=== PATIENT | female | born 1930 | race Caucasian/White ===

== ENCOUNTER 2019-05-25 10:36 | Emergency (ER) | payer MEDICARE, BC ==
[2019-05-25] MEDS ORDERED: Sodium Chloride 0.9% 10 ML Syringe FLUSH PRN (10:49)
--- NOTE | 2019-05-25 11:07 | EDM.PDOC ---
ED HPI GENERAL MEDICAL PROBLEM - General Chief Complaint: Neurological Problem Stated Complaint: DISORIENTED, FEELING UNWELL Time Seen by Provider: 05/25/19 10:50 Source of Information: Reports: Patient, Family, Old Records, RN History Limitations: Reports: No Limitations - History of Present Illness INITIAL COMMENTS - FREE TEXT/NARRATIVE: 88 yo female here with her son for onset about 40 minutes prior to arrival of mild expressive and receptive aphasia. Has not had any weakness of her arms/ legs or facial droop. Is on BP meds, hasn't had them yet today. BP normally well controlled. Has no CACERES or other source of pain. No hx of TIA or CVA. Lives in same building as her son who is here with her now. Is better neurologically now according to the son than at home or in the car en route. 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: Other (see below) (none) - Related Data Allergies Allergy/AdvReac Type Severity Reaction Status Date / Time oxycodone Allergy Other Verified 05/25/19 10:52 scopolamine Allergy Other Verified 05/25/19 10:52 codeine AdvReac Mild Nausea Verified 05/25/19 10:52 Home Meds: Home Meds Calcium Carbonate [Calcium] 1 tab PO DAILY 06/25/13 [History] Potassium Chloride 10 meq PO DAILY 06/25/13 [History] RABEprazole Sodium [Aciphex] 20 mg PO DAILY 06/25/13 [History] Sertraline HCl 50 mg PO DAILY 06/25/13 [History] Metoprolol Succinate [Toprol XL] 100 mg PO BEDTIME 02/16/15 [History] amLODIPine Besylate [Amlodipine Besylate] 2.5 mg PO DAILY 02/16/15 [History] Losartan Potassium 100 mg PO DAILY 05/25/19 [History] Teriparatide [Forteo] 1 dose DAILY 05/25/19 [History] Past Medical History HEENT History: Reports: Cataract, Impaired Vision, Sinusitis Cardiovascular History: Reports: Heart Failure, Hypertension Gastrointestinal History: Reports: Chronic Diarrhea, Diverticulosis Genitourinary History: Reports: Urinary Incontinence 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: 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 Uterine Bleeding, Musculoskeletal History: Reports: Back Pain, Chronic, Fracture, Osteoarthritis, RA Neurological History: Reports: Seizure Psychiatric History: Reports: Anxiety, Depression Endocrine/Metabolic History: Reports: Osteopenia, Osteoporosis Hematologic History: Reports: Anemia, Blood Transfusion(s) Other Oncologic History: Basal, squamous cell skin cancer Dermatologic History: Reports: Other (See Below) Other Dermatologic History: Basal cell cancer on nose, squamous cell on shoulder - Infectious Disease History Infectious Disease History: Reports: Chicken Pox, Measles, Mumps, Pertussis ( Whooping Cough) - Past Surgical History HEENT Surgical History: Reports: Cataract Surgery, Naso-Sinus Surgery, Other ( See Below) Musculoskeletal Surgical History: Reports: Arthroscopic Knee Dermatological Surgical History: Reports: Skin Biopsy Social & Family History - Tobacco Use Smoking Status *Q: Never Smoker - Alcohol Use Days Per Week of Alcohol Use: 4 Number of Drinks Per Day: 1 Total Drinks Per Week: 4 - Recreational Drug Use Recreational Drug Use: No ED ROS GENERAL - Review of Systems Review Of Systems: ROS reveals no pertinent complaints other than HPI. Constitutional: Reports: No Symptoms HEENT: Reports: No Symptoms Respiratory: Reports: No Symptoms Cardiovascular: Reports: No Symptoms Endocrine: Reports: No Symptoms GI/Abdominal: Reports: No Symptoms : Reports: No Symptoms Neurological: Reports: Confusion (mild), Trouble Speaking (some difficulty with comprehension, not articulation). Denies: Dizziness, Headache ED EXAM, NEURO - Physical Exam Exam: See Below Exam Limited By: No Limitations General Appearance: Alert, WD/WN, No Apparent Distress Eye Exam: Bilateral Eye: EOMI, Normal Inspection, PERRL, Other (some R visual field deficit noted.) Ears: Normal External Exam, Normal Canal, Other (hearing aids present) Nose: Normal Inspection, No Blood Throat/Mouth: Normal Inspection, Normal Lips, Normal Oropharynx, Normal Voice, No Airway Compromise Head Exam: Atraumatic, Normocephalic Neck: Normal Inspection Respiratory/Chest: No Respiratory Distress, Lungs Clear, Normal Breath Sounds, No Accessory Muscle Use Cardiovascular: Regular Rate, Rhythm, No Edema GI/Abdominal: Normal Bowel Sounds, Soft, Non-Tender, No Distention Neurological: Alert, Normal Mood/Affect, Normal Dorsiflexion, CN II-XII Intact, Normal Plantar Flexion, No Motor/Sensory Deficits, Oriented x 3, Other (R visual field deficit, some issues with comprehension of complex concepts that per son would normally be not a problem for her. ) DTR: 2+: Bicep (R), Bicep (L), Tricep (R), Tricep (L), Patella (R), Patella (L) , Achilles (R), Achilles (L) Extremities: Normal Inspection, Normal Range of Motion, Non-Tender, No Pedal Edema Psychiatric: Normal Affect, Normal Mood Skin Exam: Warm, Dry, Intact, Normal Color, No Rash EKG INTERPRETATION EKG Date: 05/25/19 Time: 11:05 Rhythm: NSR Rate (Beats/Min): 57 [place]: Normal P-Wave: Present QRS: LBBB (L ant fascicular block) ST-T: Normal QT: Normal Comparison: No Change EKG Interpretation Comments: LVH present. Course - Vital Signs Last Recorded V/S: Last Vital Signs Temp 36.7 C 05/25/19 10:56 Pulse 55 L 05/25/19 11:32 Resp 10 L 05/25/19 11:32 BP 150/53 H 05/25/19 11:49 Pulse Ox 99 05/25/19 11:32 - Orders/Labs/Meds Orders: Active Orders 24 hr Category Date Time Status Cardiac Monitoring [RC] .As Directed Care 05/25/19 10:49 Active EKG Documentation Completion [RC] ASDIRECTED Care 05/25/19 10:59 Active Heparin Sodium/D5W [Heparin 25,000 Units in D5W 500 ML] Med 05/25/19 12:00 Active 25,000 units in 500 ml IV TITRATE Sodium Chloride 0.9% [Saline Flush] Med 05/25/19 10:49 Active 10 ml FLUSH ASDIRECTED PRN Saline Lock Insert [OM.PC] Routine Oth 05/25/19 10:49 Ordered EKG 12 Lead [EK] Routine Ther 05/25/19 10:59 Ordered Medication Orders Heparin Sodium/Dextrose (Heparin 25,000 Units In D5w 500 Ml) 25,000 units in 500 mls @ 16 mls/hr IV TITRATE AGUEDA Sodium Chloride (Saline Flush) 10 ml FLUSH ASDIRECTED PRN PRN Reason: Keep Vein Open Last Admin: 05/25/19 11:39 Dose: 10 ml Labs: Laboratory Tests 05/25/19 05/25/19 05/25/19 Range/Units 10:48 10:48 11:26 WBC 6.1 (4.5-11.0) K/uL RBC 4.75 (3.30-5.50) M/uL Hgb 12.7 (12.0-15.0) g/dL Hct 39.4 (36.0-48.0) % MCV 83 (80-98) fL MCH 27 (27-31) pg MCHC 32 (32-36) % Plt Count 254 (150-400) K/uL Sodium 142 (140-148) mmol/L Potassium 4.1 (3.6-5.2) mmol/L Chloride 106 (100-108) mmol/L Carbon Dioxide 28 (21-32) mmol/L Anion Gap 8.2 (5.0-14.0) mmol/L BUN 19 H (7-18) mg/dL Creatinine 0.8 (0.6-1.0) mg/dL Est Cr Clr Drug Dosing 43.74 mL/min Estimated GFR (MDRD) > 60 (>60) Glucose 154 H (74-106) mg/dL Calcium 8.8 (8.5-10.1) mg/dL Troponin I 0.271 H* (0.000-0.056) ng/mL Urine Color Yellow (YELLOW) Urine Appearance Slightly cloudy A (CLEAR) Urine pH 7.0 (5.0-8.0) Ur Specific [place] 1.020 (1.008-1.030) Urine Protein Negative (NEGATIVE) mg/dL Urine Glucose (UA) Negative (NEGATIVE) mg/dL Urine Ketones Negative (NEGATIVE) mg/dL Urine Occult Blood Negative (NEGATIVE) Urine Nitrite Negative (NEGATIVE) Urine Bilirubin Negative (NEGATIVE) Urine Urobilinogen 0.2 (0.2-1.0) EU/dL Ur Leukocyte Esterase Small H (NEGATIVE) Urine RBC Not seen (0-5) Urine WBC 5-10 H (0-5) Ur Epithelial Cells Rare Amorphous Sediment Few Urine Bacteria Moderate Urine Mucus Not seen Meds: Medications Generic Name Dose Route Start Last Admin Trade Name Freq PRN Reason Stop Dose Admin Heparin Sodium/Dextrose 25,000 units in 500 mls @ 16 mls/hr 05/25/19 12:00 Heparin 25,000 Units In D5w 500 Ml IV TITRATE AGUEDA 800 UNITS/HR Sodium Chloride 10 ml 05/25/19 10:49 05/25/19 11:39 Saline Flush FLUSH 10 ml ASDIRECTED PRN Administration Keep Vein Open Discontinued Medications Generic Name Dose Route Start Last Admin Trade Name Joanie PRN Reason Stop Dose Admin Amlodipine Besylate 2.5 mg 05/25/19 11:16 05/25/19 11:38 Norvasc PO 05/25/19 11:17 2.5 mg ONETIME ONE Administration Aspirin 324 mg 05/25/19 11:35 05/25/19 11:50 Aspirin PO 05/25/19 11:36 324 mg ONETIME ONE Administration Clopidogrel Bisulfate 300 mg 05/25/19 11:54 Plavix PO 05/25/19 11:55 ONETIME ONE Heparin Sodium (Porcine) 4,000 units 05/25/19 11:54 Heparin Sodium IVPUSH 05/25/19 11:55 ONETIME ONE Losartan Potassium 100 mg 05/25/19 11:15 Cozaar PO 05/25/19 11:16 ONETIME ONE Losartan Potassium 50 mg 05/25/19 11:45 05/25/19 11:49 Cozaar PO 05/25/19 11:46 50 mg ONETIME ONE Administration - Radiology Interpretation Free Text/Narrative:: Head CT-NEg CT Results Date: 05/25/19 CT Results Time: 11:50 Departure - Departure Time of Disposition: 12:35 Disposition: DC/Tfer to Acute Hospital 02 Condition: Serious Clinical Impression: Non-ST elevated myocardial infarction, TIA (transient ischemic attack) - Discharge Information *PRESCRIPTION DRUG MONITORING PROGRAM REVIEWED*: No *COPY OF PRESCRIPTION DRUG MONITORING REPORT IN PATIENT GRACE: No Referrals: PCP,None [Primary Care Provider] - Forms: ED Department Discharge - My Orders Last 24 Hours: My Active Orders 05/25/19 10:49 Cardiac Monitoring [RC] .As Directed Sodium Chloride 0.9% [Saline Flush] 10 ml FLUSH ASDIRECTED PRN Saline Lock Insert [OM.PC] Routine 05/25/19 10:59 EKG Documentation Completion [RC] ASDIRECTED EKG 12 Lead [EK] Routine 05/25/19 12:00 Heparin Sodium/D5W [Heparin 25,000 Units in D5W 500 ML] 25,000 units in 500 ml IV TITRATE - Assessment/Plan Last 24 Hours: My Active Orders 05/25/19 10:49 Cardiac Monitoring [RC] .As Directed Sodium Chloride 0.9% [Saline Flush] 10 ml FLUSH ASDIRECTED PRN Saline Lock Insert [OM.PC] Routine 05/25/19 10:59 EKG Documentation Completion [RC] ASDIRECTED EKG 12 Lead [EK] Routine 05/25/19 12:00 Heparin Sodium/D5W [Heparin 25,000 Units in D5W 500 ML] 25,000 units in 500 ml IV TITRATE
[2019-05-25] MEDS ORDERED: Losartan 50 MG Tab PO ONE ×2 (11:15→11:45)
[2019-05-25] MEDS ORDERED: amLODIPine 5 MG Tab PO ONE (11:16)
[2019-05-25] MEDS ORDERED: Aspirin 81 MG Tab.Chew PO ONE (11:35)
--- NOTE | 2019-05-25 11:46 | CRLCT ---
INDICATION: TIA VS CVA INDICATION: TIA versus ischemic infarct. TECHNIQUE: CT head without contrast. COMPARISON: None FINDINGS: CSF spaces: Age-related volume loss. Small vessel ischemic changes in the periventricular white matter. Brain parenchyma: The napier-white differentiation is normal. No sign of mass, hemorrhage, or midline shift. Skull base and calvarium: The visualized mastoid air cells are clear. The visualized orbits are grossly unremarkable. No skull fractures. Partially visualized opacification of the left maxillary antrum and image 1, series 3. IMPRESSION: 1. There is no acute intracranial hemorrhage, shift of midline structures, or mass effect. 2. Volume loss/small-vessel ischemic changes in the periventricular white matter. 3. No hyperdense MCA sign. Dictated by Liu Mtz MD @ 05/25/2019 11:45:39 AM Please note that all CT scans at this facility use dose modulation, iterative reconstruction, and/or weight-based dosing when appropriate to reduce radiation dose to as low as reasonably achievable. Dictated by: Liu Mtz MD @ 05/25/2019 11:45:44 (Electronically Signed)
[2019-05-25] MEDS ORDERED: Clopidogrel 75 MG Tab PO ONE (11:54)
[2019-05-25] MEDS ORDERED: Heparin Sodium 5,000 Units/ML Vial IVPUSH ONE (11:54)
[2019-05-25] MEDS ORDERED: Heparin Sodium/D5W 25,000 UNITS/500 ML BAG IV SCH (12:00)
[2019-05-25] MEDS ORDERED: LORazepam 2 MG/ML SDV IVPUSH ONE (13:12)
[2019-05-25 13:13] VITALS: BP 208/80; PULSE 65
== END 2019-05-25 13:58 ==
LOC: JP.ED 10:36
DX: I21.4 Non-ST elevation (NSTEMI) myocardial infarction (principal); G45.9 Transient cerebral ischemic attack, unspecified; I11.0 Hypertensive heart disease with heart failure; I50.9 Heart failure, unspecified; F41.9 Anxiety disorder, unspecified; F32.9 Major depressive disorder, single episode, unspecified; Z88.5 Allergy status to narcotic agent; Z88.8 Allergy status to other drugs, medicaments and biological substances; Z79.899 Other long term (current) drug therapy
CPT/HCPCS: 36415; 70450; 80048; 81001; 84484; 85027; 93005; 96365; 96375; 99285; A9270; J1644; J2060; 93010

== ENCOUNTER 2019-06-13 17:49 | Emergency (ER) | payer MEDICARE, BC ==
--- NOTE | 2019-06-13 18:13 | EDM.PDOC ---
ED HPI GENERAL MEDICAL PROBLEM - General Chief Complaint: Neurological Problem Stated Complaint: MED[facility] Time Seen by Provider: 06/13/19 18:00 Source of Information: Reports: EMS, Family, Old Records History Limitations: Reports: No Limitations - History of Present Illness INITIAL COMMENTS - FREE TEXT/NARRATIVE: 88 yo female here via EMS from her home after about a 4 min seizure witnessed by her son. He described her R hand as twitching rhythmically. Had one prior seizure about 8 yrs ago. 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 A work up there did not reveal the source of the embolus. The son states she appeared to fully recover from that stroke. Patricia lives above her son in the same building. The son heard her fall upstairs and they ran up to catch about 3 minutes of seizing. Transport via EMS to the hospital. She appeared postictal and was noted to be hypertensive during transport. Had a Holter upon discharge, the son reports he was told there was "an event" that was noted on this, but has not yet been notified by cardiology what that event was. Onset: Today Onset Date: 06/13/19 Duration: Minutes: (~4 min), Resolved Prior to Arrival Location: Reports: Upper Extremity, Right Quality: Reports: Other (pain not reported.) Severity: Moderate Improves with: Reports: Other (time) Worsens with: Reports: Other (unknown) Context: Reports: Other (See HPI) Associated Symptoms: Reports: Seizure. 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 (see below) (none) - Related Data Allergies Allergy/AdvReac Type Severity Reaction Status Date / Time oxycodone Allergy Other Verified 06/13/19 18:01 scopolamine Allergy Other Verified 06/13/19 18:01 codeine AdvReac Mild Nausea Verified 06/13/19 18:01 Home Meds: Home Meds Calcium Carbonate [Calcium] 1 tab PO DAILY 06/25/13 [History] Potassium Chloride 10 meq PO DAILY 06/25/13 [History] Sertraline HCl 50 mg PO DAILY 06/25/13 [History] Losartan Potassium 50 mg PO DAILY 05/25/19 [History] Teriparatide [Forteo] 1 dose SQ DAILY 05/25/19 [History] Aspirin 81 mg PO DAILY 06/13/19 [History] Carvedilol 12.5 mg PO BID 06/13/19 [History] Diphenoxylate HCl/Atropine [Lomotil] 1 tab PO Q6H PRN 06/13/19 [History] Loratadine 10 mg PO DAILY 06/13/19 [History] Omeprazole 20 mg PO DAILY 06/13/19 [History] atorvaSTATin [Lipitor] 80 mg PO BEDTIME 06/13/19 [History] hydroCHLOROthiazide [Hydrochlorothiazide] 25 mg PO DAILY 06/13/19 [History] levETIRAcetam [Keppra] 250 mg PO Q12H #106 tablet 06/13/19 [Rx] Past Medical History HEENT History: Reports: Cataract, Impaired Vision, Sinusitis Cardiovascular History: Reports: Heart Failure, Hypertension Gastrointestinal History: Reports: Chronic Diarrhea, Diverticulosis Genitourinary History: Reports: Urinary Incontinence 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: 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 Bleeding, Musculoskeletal History: Reports: Back Pain, Chronic, Fracture, Osteoarthritis, RA Neurological History: Reports: Seizure Psychiatric History: Reports: Anxiety, Depression Endocrine/Metabolic History: Reports: Osteopenia, Osteoporosis Hematologic History: Reports: Anemia, Blood Transfusion(s) Other Oncologic History: Basal, squamous cell skin cancer Dermatologic History: Reports: Other (See Below) Other Dermatologic History: Basal cell cancer on nose, squamous cell on shoulder - Infectious Disease History Infectious Disease History: Reports: Chicken Pox, Measles, Mumps, Pertussis ( Whooping Cough) - Past Surgical History HEENT Surgical History: Reports: Cataract Surgery, Naso-Sinus Surgery, Other ( See Below) Musculoskeletal Surgical History: Reports: Arthroscopic Knee Dermatological Surgical History: Reports: Skin Biopsy ED [facility] GENERAL - Review of Systems Review Of Systems: See Below Constitutional: Reports: No Symptoms HEENT: Reports: No Symptoms Respiratory: Reports: No Symptoms Cardiovascular: Reports: No Symptoms GI/Abdominal: Reports: No Symptoms : Reports: No Symptoms Musculoskeletal: Reports: No Symptoms Skin: Reports: No Symptoms Neurological: Reports: Confusion (immediatetely after the seizure), Seizure ( about 4 min duration) - Physical Exam Exam: See Below Exam Limited By: No Limitations General Appearance: WD/WN, No Apparent Distress, Lethargic (upon arrival in the ER). No: Alert Eye Exam: Bilateral Eye: Conjunctival Injection, EOMI, Normal Inspection, PERRL Ears: Normal External Exam, Normal Canal, Hearing Grossly Normal, Normal TMs Nose: Normal Inspection, No Blood Throat/Mouth: Normal Inspection, Normal Lips, Normal Oropharynx, No Airway Compromise, Evidence of Tongue Biting Head Exam: Atraumatic, Normocephalic Neck: Normal Inspection Respiratory/Chest: No Respiratory Distress, Lungs Clear, Normal Breath Sounds, No Accessory Muscle Use Cardiovascular: Regular Rate, Rhythm, No Edema GI/Abdominal: Normal Bowel Sounds, Soft, Non-Tender, No Distention Neuro Exam (Abbreviated): Alert, CN II-XII Intact, No Motor/Sensory Deficits, Confused (initially), Disoriented (initially), Slow to Respond, Memory Loss Recent Events. No: Sensory/Motor Deficit Back Exam: Normal Inspection Extremities: Normal Inspection, Normal Range of Motion, Non-Tender, No Pedal Edema Psychiatric: Normal Affect, Normal Mood Skin Exam: Warm, Dry, Intact, Normal Color, No Rash Course - Vital Signs Text/Narrative:: Case discussed with a [place] neurologist @ 1842h, recommends starting her on Keppra bid. Dosing guidelines discussed. Needs to f/u soon with solution advisor to discuss her heart monitor results. Called Dr. Muir @ 2002h, told him patient's son did not want to take her home and asked if he would put her in as an OBS patient. He told me to go ahead and repeat to family/patient what I had told them earlier and then go ahead and send them home. Was observed for a couple more hrs and showed no sign of further seizures or any bouts of afib. Will discharge. Last Recorded V/S: Last Vital Signs Temp 35.4 C 06/13/19 18:08 Pulse 57 L 06/13/19 21:51 Resp 24 H 06/13/19 21:51 BP 147/58 H 06/13/19 21:51 Pulse Ox 98 06/13/19 21:51 - Orders/Labs/Meds Orders: Active Orders 24 hr Category Date Time Status Sodium Chloride 0.9% [Saline Flush] Med 06/13/19 18:43 Active 10 ml FLUSH ASDIRECTED PRN Saline Lock Insert [OM.PC] Routine Oth 06/13/19 18:43 Ordered Medication Orders Sodium Chloride (Saline Flush) 10 ml FLUSH ASDIRECTED PRN PRN Reason: Keep Vein Open Last Admin: 06/13/19 19:16 Dose: 10 ml Meds: Medications Generic Name Dose Route Start Last Admin Trade Name Freq PRN Reason Stop Dose Admin Sodium Chloride 10 ml 06/13/19 18:43 06/13/19 19:16 Saline Flush FLUSH 10 ml ASDIRECTED PRN Administration Keep Vein Open Discontinued Medications Generic Name Dose Route Start Last Admin Trade Name Freq PRN Reason Stop Dose Admin Levetiracetam 1,000 mg/ Sodium 110 mls @ 400 mls/hr 06/13/19 18:43 06/13/19 19:10 Chloride IV 06/13/19 18:57 400 mls/hr ONETIME ONE Administration Levetiracetam 250 mg 06/13/19 18:45 Keppra PO BID AGUEDA - Radiology Interpretation Free Text/Narrative:: Head CT scan without contrast- IMPRESSION: 1. Question of subtle patchy hypodensity in the left parietal lobe, as noted. MRI should be considered for further evaluation. 2. Mild age-related brain atrophy, white matter hypodensity consistent with chronic small vessel ischemic change, and intracranial atherosclerotic vascular calcifications. RONALDO FLORES MD CT Results Date: 06/13/19 Departure - Departure Time of Disposition: 22:11 Disposition: Home, Self-Care 01 Condition: Fair Clinical Impression: Seizure - Discharge Information *PRESCRIPTION DRUG MONITORING PROGRAM REVIEWED*: No *COPY OF PRESCRIPTION DRUG MONITORING REPORT IN PATIENT GRACE: No Prescriptions: levETIRAcetam [Keppra] 250 mg PO Q12H #106 tablet Referrals: Hermila Romero MD [Primary Care Provider] - Forms: ED Department Discharge Additional Instructions: Take Keppra 250 mg every 12 hrs starting tomorrow morning when pharmacies open. After a week increase the dose to 500 mg every 12 hrs. Make an appt to follow up with both cardiology and neurology. Return as needed. Keep track of Patricia's BP and report her readings to her solution advisor/family doctors. Continue other meds. Try to reach cardiology tomorrow to see if afib was seen on heart monitoring and if a med other than Aspirin is needed for stroke prevention. No driving, climbing or other activities that would be particularly dangerous if another seizure occurred. Return as needed. - My Orders Last 24 Hours: My Active Orders 06/13/19 18:43 Sodium Chloride 0.9% [Saline Flush] 10 ml FLUSH ASDIRECTED PRN Saline Lock Insert [OM.PC] Routine - Assessment/Plan Last 24 Hours: My Active Orders 06/13/19 18:43 Sodium Chloride 0.9% [Saline Flush] 10 ml FLUSH ASDIRECTED PRN Saline Lock Insert [OM.PC] Routine
--- NOTE | 2019-06-13 18:28 | CRLCT ---
INDICATION: seizure activity CT HEAD WITHOUT CONTRAST TECHNIQUE: Multiple axial CT images were performed through the head without intravenous contrast administration. COMPARISON: 05/25/[address] FINDINGS: No acute intracranial hemorrhage is identified. No extra-axial collections are evident and there is no mass effect or midline shift. There is mild diffuse age-related brain atrophy, as before. Ventricular size and configuration are within normal limits for the patient`s age. Gonzalez-white differentiation is within normal limits. There is unchanged patchy hypodensity in the periventricular white matter, a nonspecific finding which most likely reflects chronic small vessel ischemic change. Intracranial atherosclerotic vascular calcifications are noted. There is a question of subtle patchy cortical and subcortical hypodensity in the left parietal lobe, which could possibly represent a subacute infarct or edema surrounding a small mass. Osseous structures are within normal limits and no fractures are seen. Included portions of the paranasal sinuses and mastoid air cells are normally aerated aside from mucosal thickening in the superior right maxillary sinus, as before. IMPRESSION: 1. Question of subtle patchy hypodensity in the left parietal lobe, as noted. MRI should be considered for further evaluation. 2. Mild age-related brain atrophy, white matter hypodensity consistent with chronic small vessel ischemic change, and intracranial atherosclerotic vascular calcifications. RONALDO FLORES MD [employer] Dictated by Joseluis Flores MD @ 06/13/2019 6:21:11 PM Dictated by: Joseluis Flores MD @ 06/13/2019 18:26:52 (Electronically Signed)
[2019-06-13] MEDS ORDERED: Sodium Chloride 0.9% 10 ML Syringe FLUSH PRN (18:43)
[2019-06-13] MEDS ORDERED: levETIRAcetam 1,000 MG in Sodium Chloride 0.9% 100 ML IV ONE (18:43)
[2019-06-13] MEDS ORDERED: levETIRAcetam 250 MG Tab PO SCH (18:45)
[2019-06-13 21:52] VITALS: BP 147/58; PULSE 57
== END 2019-06-13 22:22 | disposition home or self-care (01) ==
LOC: JP.ED 17:49
DX: R56.9 Unspecified convulsions (principal); I11.0 Hypertensive heart disease with heart failure; I50.9 Heart failure, unspecified; F32.9 Major depressive disorder, single episode, unspecified; F41.9 Anxiety disorder, unspecified; Z86.73 Personal history of transient ischemic attack (TIA), and cerebral infarction without residual deficits; Z79.82 Long term (current) use of aspirin; Z79.899 Other long term (current) drug therapy; Z88.5 Allergy status to narcotic agent; Z88.8 Allergy status to other drugs, medicaments and biological substances
CPT/HCPCS: 70450; 96374; 99284; J1953; J7030

== ENCOUNTER 2019-11-28 20:45 | Emergency (ER) | payer MEDICARE, BC ==
--- NOTE | 2019-11-28 21:35 | EDM.PDOC ---
ED HPI GENERAL MEDICAL PROBLEM - General Chief Complaint: Neuro Symptoms/Deficits Stated Complaint: NOT FEELING RIGHT Time Seen by Provider: 11/28/19 21:20 Source of Information: Reports: Patient, Family, RN Notes Reviewed History Limitations: Reports: No Limitations - History of Present Illness INITIAL COMMENTS - FREE TEXT/NARRATIVE: 88-year-old female presents emergency department today complaint of left arm tingling, the symptoms started about an hour prior they now have resolved she feels she is back to normal. She does have a history of recent pacemaker implantation and CVA which occurred about 6 months ago was placed on Eliquis for anticoagulation which she is taking she does use hydrochlorothiazide intermittently for leg edema, son states he is noticed she has had some difficulty speaking over the last 3 weeks denies pain Pain Score (Numeric/FACES): 0 - Related Data Allergies Allergy/AdvReac Type Severity Reaction Status Date / Time oxycodone Allergy Other Verified 11/28/19 21:04 scopolamine Allergy Other Verified 11/28/19 21:04 codeine AdvReac Mild Nausea Verified 11/28/19 21:04 Home Meds: Home Meds Potassium Chloride 10 meq PO DAILY 06/25/13 [History] Sertraline HCl 50 mg PO BEDTIME 06/25/13 [History] Losartan Potassium 50 mg PO BID 05/25/19 [History] hydroCHLOROthiazide [Hydrochlorothiazide] 12.5 mg PO ASDIRECTED PRN 06/13/19 [ History] Apixaban [Eliquis] 2.5 mg PO BID 11/28/19 [History] Calcium Carbonate/Vitamin D3 [Calcium 600 + Vit D Tablet] 2 tab PO DAILY [History] Cholecalciferol (Vitamin D3) [Vitamin D3] 125 mcg PO DAILY 11/28/19 [History] Teriparatide [Forteo] 1 injection SUBCUT BEDTIME 11/28/19 [History] amLODIPine [Norvasc] 5 mg PO DAILY 11/28/19 [History] Past Medical History HEENT History: Reports: Cataract, Impaired Vision, Sinusitis Cardiovascular History: Reports: Heart Failure, Hypertension Gastrointestinal History: Reports: Chronic Diarrhea, Diverticulosis Genitourinary History: Reports: Urinary Incontinence [employer] History: Reports: 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 Uterine Bleeding, Musculoskeletal History: Reports: Back Pain, Chronic, Fracture, Osteoarthritis, RA Neurological History: Reports: CVA (May 2019), Seizure Psychiatric History: Reports: Anxiety, Depression Endocrine/Metabolic History: Reports: Osteopenia, Osteoporosis Hematologic History: Reports: Anemia, Blood Transfusion(s) Other Oncologic History: Basal, squamous cell skin cancer Dermatologic History: Reports: Other (See Below) Other Dermatologic History: Basal cell cancer on nose, squamous cell on shoulder - Infectious Disease History Infectious Disease History: Reports: Chicken Pox, Measles, Mumps, Pertussis ( Whooping Cough) - Past Surgical History HEENT Surgical History: Reports: Cataract Surgery, Naso-Sinus Surgery, Other ( See Below) Musculoskeletal Surgical History: Reports: Arthroscopic Knee Dermatological Surgical History: Reports: Skin Biopsy Social & Family History - Tobacco Use Smoking Status *Q: Never Smoker - Caffeine Use Caffeine Use: Reports: Coffee - Recreational Drug Use Recreational Drug Use: No ED ROS GENERAL - Review of Systems Review Of Systems: See Below Constitutional: Reports: No Symptoms HEENT: Reports: No Symptoms Respiratory: Reports: No Symptoms Cardiovascular: Reports: No Symptoms GI/Abdominal: Reports: No Symptoms Musculoskeletal: Reports: No Symptoms Skin: Reports: No Symptoms Neurological: Reports: Tingling (Left arm), Trouble Speaking (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) ED EXAM, NEURO - Physical Exam Exam: See Below Exam Limited By: No Limitations Eye Exam: Bilateral Eye: Normal Inspection Respiratory/Chest: No Respiratory Distress, Lungs Clear, Normal Breath Sounds, No Accessory Muscle Use, Chest Non-Tender Cardiovascular: Regular Rate, Rhythm, No Murmur GI/Abdominal: Soft, Non-Tender Neurological: Alert, Normal Mood/Affect, CN II-XII Intact, No Motor/Sensory Deficits, Oriented x 3 Extremities: Normal Inspection, Normal Range of Motion, Non-Tender, No Pedal Edema Course - Vital Signs Last Recorded V/S: Last Vital Signs Temp 97.5 F 11/28/19 21:12 Pulse 75 11/28/19 22:35 Resp 23 H 11/28/19 22:35 BP 178/81 H 11/28/19 22:35 Pulse Ox 97 11/28/19 22:35 - Orders/Labs/Meds Orders: Active Orders 24 hr Category Date Time Status EKG Documentation Completion [RC] ASDIRECTED Care 11/28/19 21:31 Active EKG 12 Lead [EK] Urgent Ther 11/28/19 21:30 Ordered Labs: Laboratory Tests 11/28/19 11/28/19 11/28/19 Range/Units 21:40 21:40 21:40 WBC 6.8 (4.5-11.0) K/uL RBC 4.79 (3.30-5.50) M/uL Hgb 13.1 (12.0-15.0) g/dL Hct 38.4 (36.0-48.0) % MCV 80 (80-98) fL MCH 27 (27-31) pg MCHC 34 (32-36) % Plt Count 262 (150-400) K/uL Neut % (Auto) 53 (36-66) % Lymph % (Auto) 31 (24-44) % Hooker % (Auto) 11 H (2-6) % Eos % (Auto) 4 (2-4) % Baso % (Auto) 1 (0-1) % D-Dimer, Quantitative (0.0-400.0) ng/mL Sodium 136 L (140-148) mmol/L Potassium 3.3 L (3.6-5.2) mmol/L Chloride 99 L (100-108) mmol/L Carbon Dioxide 26 (21-32) mmol/L Anion Gap 14.3 H (5.0-14.0) mmol/L BUN 16 (7-18) mg/dL Creatinine 0.8 (0.6-1.0) mg/dL Est Cr Clr Drug Dosing 41.97 mL/min Estimated GFR (MDRD) > 60 (>60) Glucose 151 H (74-106) mg/dL Lactic Acid 2.2 H (0.4-2.0) mmol/L Calcium 8.7 (8.5-10.1) mg/dL Total Bilirubin 0.4 (0.2-1.0) mg/dL AST 16 (15-37) U/L ALT 32 (12-78) U/L Alkaline Phosphatase 155 H (46-116) U/L Troponin I 0.210 H* (0.000-0.056) ng/mL Total Protein 7.1 (6.4-8.2) g/dL Albumin 3.5 (3.4-5.0) g/dL Globulin 3.6 H (2.3-3.5) g/dL Albumin/Globulin Ratio 1.0 L (1.2-2.2) 11/28/19 Range/Units 21:40 WBC (4.5-11.0) K/uL RBC (3.30-5.50) M/uL Hgb (12.0-15.0) g/dL Hct (36.0-48.0) % MCV (80-98) fL MCH (27-31) pg MCHC (32-36) % Plt Count (150-400) K/uL Neut % (Auto) (36-66) % Lymph % (Auto) (24-44) % Hooker % (Auto) (2-6) % Eos % (Auto) (2-4) % Baso % (Auto) (0-1) % D-Dimer, Quantitative 282 (0.0-400.0) ng/mL Sodium (140-148) mmol/L Potassium (3.6-5.2) mmol/L Chloride (100-108) mmol/L Carbon Dioxide (21-32) mmol/L Anion Gap (5.0-14.0) mmol/L BUN (7-18) mg/dL Creatinine (0.6-1.0) mg/dL Est Cr Clr Drug Dosing mL/min Estimated GFR (MDRD) (>60) Glucose (74-106) mg/dL Lactic Acid (0.4-2.0) mmol/L Calcium (8.5-10.1) mg/dL Total Bilirubin (0.2-1.0) mg/dL AST (15-37) U/L ALT (12-78) U/L Alkaline Phosphatase (46-116) U/L Troponin I (0.000-0.056) ng/mL Total Protein (6.4-8.2) g/dL Albumin (3.4-5.0) g/dL Globulin (2.3-3.5) g/dL Albumin/Globulin Ratio (1.2-2.2) Departure - Departure Time of Disposition: 23:04 Disposition: DC/Tfer to Acute Hospital 02 Condition: Fair Clinical Impression: Left arm numbness, Elevated troponin - Discharge Information Referrals: PCP,None [Primary Care Provider] - Forms: ED Department Discharge Sepsis Event Note - Evaluation Sepsis Screening Result: No Definite Risk - Focused Exam Vital Signs: Vital Signs Temp Pulse Resp BP Pulse Ox 11/28/19 22:35 75 23 H 178/81 H 97 11/28/19 22:06 62 25 H 133/61 98 11/28/19 21:40 78 22 H 178/79 H 98 11/28/19 21:12 97.5 F 95 22 H 194/87 H 99 11/28/19 21:11 97.5 F 95 22 H 194/87 H 99 Date Exam was Performed: 11/28/19 Time Exam was Performed: 23:02 - My Orders Last 24 Hours: My Active Orders 11/28/19 21:30 EKG 12 Lead [EK] Urgent 11/28/19 21:31 EKG Documentation Completion [RC] ASDIRECTED - Assessment/Plan Last 24 Hours: My Active Orders 11/28/19 21:30 EKG 12 Lead [EK] Urgent 11/28/19 21:31 EKG Documentation Completion [RC] ASDIRECTED Plan: Assessment Acuity = acute Site and laterality = left arm tingling lasting 1 hour Etiology = unknown Manifestations = symptoms now resolved Location of injury = Home Lab values = CBC unremarkable sodium low at 136 consistent hyponatremia potassium low at 3.3 consistent hypokalemia lactic acid slightly elevated 2.2 troponin elevated 0.210 of uncertain significance EKG demonstrates a paced rhythm CT scan of the head shows no acute process Plan Call discussed case with neurology on-call at 2240 at [facility] recommended further evaluation for CVA however she is not a candidate for thrombolytics discussed case with Dr. Mendosa emergency room physician who accepted the patient she will be transported via EMS ground This note was dictated using Resolver voice recognition software please call with any questions on syntax or grammar.
[2019-11-28 22:41] VITALS: BP 178/81; PULSE 75
--- NOTE | 2019-11-28 22:43 | CRLCT ---
INDICATION: Left arm tingling TECHNIQUE: CT head without contrast. COMPARISON: 06/13/2019 FINDINGS: There is age-related cerebral and cerebellar cortical atrophy. The ventricles are within normal limits for the patient`s age. There is no mass effect or midline shift. There is an area of encephalomalacia in the right parietal lobe consistent with a chronic infarct. There is a chronic left thalamic lacunar infarct. A tiny right thalamic low-density focus on image 21 is age indeterminate. White matter hypodensities are suggestive of chronic small vessel ischemic changes. There is no loss of napier-white differentiation. There is no evidence of an acute intracranial hemorrhage. No acute calvarial fracture is seen. There is opacification of the visualized superior aspect of the left maxillary sinus with absence of the medial sinus wall and extension of soft tissue into the superior aspect of the left nasal cavity. There is mild mucosal thickening and small debris in the left sphenoid sinus. The mastoid air cells are clear. Post cataract surgery changes are seen. IMPRESSION: No evidence of an acute intracranial hemorrhage, mass effect or loss of napier-white differentiation. Age-related atrophy and chronic ischemic changes with old infarcts. A small age-indeterminate right thalamic low-density focus. If an evolving lacunar infarct is suspected, correlate with MRI. A polypoid density in the left maxillary sinus and mild left sphenoid sinus disease. Correlate clinically. Dictated by Todd Fuller MD @ 11/28/2019 10:42:41 PM Please note that all CT scans at this facility use dose modulation, iterative reconstruction, and/or weight-based dosing when appropriate to reduce radiation dose to as low as reasonably achievable. Dictated by: Todd Fuller MD @ 11/28/2019 22:42:47 (Electronically Signed)
== END 2019-11-28 23:15 ==
LOC: JP.ED 20:45
DX: R20.0 Anesthesia of skin (principal); R79.89 Other specified abnormal findings of blood chemistry; F41.9 Anxiety disorder, unspecified; F32.9 Major depressive disorder, single episode, unspecified; I11.0 Hypertensive heart disease with heart failure; I50.9 Heart failure, unspecified; Z88.5 Allergy status to narcotic agent; Z88.8 Allergy status to other drugs, medicaments and biological substances; Z79.01 Long term (current) use of anticoagulants; Z79.899 Other long term (current) drug therapy; Z86.73 Personal history of transient ischemic attack (TIA), and cerebral infarction without residual deficits
CPT/HCPCS: 36415; 70450; 80053; 83605; 84484; 85025; 85379; 93005; 99285; 99285-25